=== PATIENT | female | born 2000 | race Caucasian/White ===

== ENCOUNTER 2021-01-05 18:56 | Emergency (ER) | payer OTHER, SELFPAY ==
--- NOTE | ~2021-01-05 | XR_ITS ---
EXAMINATION: XR CHEST CLINICAL INFORMATION: question of infiltrate, recent pneumonia with cough COMPARISON: Prior frontal view of chest performed today 7:36 PM TECHNIQUE: Lateral view of chest only. FINDINGS: On the frontal view of the chest performed earlier today a subtle opacity was noted at the left lung base. No airspace disease is seen in this lateral view. No pleural effusion. XR/XR chest 1V IMPRESSION: No airspace disease in this lateral projection.
--- NOTE | ~2021-01-05 | XR_ITS ---
EXAMINATION: PORTABLE CHEST 1 VIEW CLINICAL INFORMATION: COUGH . COMPARISON: No recent pertinent prior studies are available for comparison. TECHNIQUE: Portable frontal view of the chest was obtained. FINDINGS: The lungs are well expanded. Subtle focal opacity overlying the left base more likely due to overlying superimposed structures no other definitive infiltrate, effusion, edema, or pneumothorax. Cardiac and mediastinal silhouettes are within normal limits for technique. No acute bony abnormality seen. XR/XR chest 1V IMPRESSION: Subtle opacity overlying the left base more likely due to overlying structures. Early infiltrate would be considered less likely. Correlation with a PA and lateral view of the chest at slightly different obliquities may be helpful for evaluating further if needed.
[2021-01-05 20:41] LABS: COVID-19 Test Negative (Negative); IDNOW Serial# 55D5AD1C
[2021-01-05 21:05] VITALS: BP 128/80; PULSE 91; RESP 16; TEMP 36.8; O2SAT 98; BMI 39.0
--- NOTE | 2021-01-05 21:48 | ED.GENADULT ---
HPI - General Adult General Chief complaint: General Medical Stated complaint: pneumonia Time Seen by Provider: 01/05/21 21:48 Source: patient Mode of arrival: ambulatory Limitations: no limitations History of Present Illness HPI narrative: 2 weeks of low chest pain vs abdominal pain. patient had an xray at [place] and was told that she had possible pneumonia and she took a zpack which she finished a week ago. Patient currently at [facility]. Pain Consistency: intermittent Exacerbating factors: movement Associated symptoms: shortness of breath Related Data Allergies Allergy/AdvReac Type Severity Reaction Status Date / Time cephalexin [From Keflex] AdvReac Mild fever Verified 01/05/21 21:51 Review of Systems Constitutional: Constitutional: Reports no additional constitutional complaints Eyes: Eyes: Reports no additional eye complaints ENT: Denies dizziness Cardiovascular: Cardiovascular: Reports no additional cardiovascular complaints Respiratory: Respiratory: Reports as per HPI Gastrointestinal: Gastrointestinal: Reports no additional gastrointestinal complaints Genitourinary: Genitourinary: Reports no additional female genitourinary complaints Musculoskeletal: Musculoskeletal: Reports no additional musculoskeletal complaints Integumentary/Breasts: Skin/Breast: Denies rash Neurologic: Reports system reviewed and no additional complaints, except as documented, Denies dizziness and Denies Sensory deficit (Neuro) Psychiatric: Psychiatric: Denies anxiety [facility] Social History Social History Advance Directives: No Patient : No Physical Exam Vital Signs: Vital Signs: Last Vital Signs Temp 98.2 F 01/05/21 21:05 Pulse 91 01/05/21 21:05 Resp 16 01/05/21 21:05 BP 128/80 01/05/21 21:05 Pulse Ox 98 01/05/21 21:05 Body Mass Index 39.0 Const: General: healthy appearing Nutritional Appearance: obese Orientation/consciousness: oriented to person and patient oriented x3 Limitations: no limitations HENMT: Head: Yes normal to inspection Ears: external ears normal General nose exam: Normal external nose present Mouth: Normal oral and palatal mucosa present and oropharynx normal Throat: Yes posterior oropharynx normal Eyes: General: appearance normal, both eyes and all related structures Neck: Other: supple Neck: Yes normal visual inspection Chest: Chest palpation & inspection: normal inspection of the chest Resp: Auscultation: clear to auscultation bilaterally Cardio: Jugular venous distension: no JVD Rate: regular rate Rhythm: regular rhythm Heart sounds: S1 normal heart sound present and S2 normal heart sound present GI: Inspection: Yes normal to inspection Palpation (GI): Soft to palpation, nontender and No hepatosplenomegaly present Auscultation: normal bowel sounds : General: Yes no CVA tenderness Back/Spine/Pelvis: Back: no CVA tenderness Skin: General skin exam: no rashes or lesions noted Neuro: General: oriented to person and patient oriented x3 Cranial nerves: Yes CN's II-XII intact bilaterally Motor exam (neuro): 5/5 motor strength present throughout Sensory Exam: No Sensory deficit (Neuro) Extrem: General: Yes normal to inspection Psych: Appearance: grossly normal Course Reevaluation(s) Reevaluation #1: no evidence of pneumonia on cxr. Patient with lower rib tenderness most likely from coughing although she does not have any cough here. Will dc home on tylenol and motrin for pain Time: 22:22 Medical Decision Making Lab Data Labs: Lab Results 01/05/21 Range/Units 20:18 COVID-19 (CADE) Negative (Negative) COVID-19 Clin Com See Note Imaging Data Chest x-ray: Radiologist's impression: no infiltrate Discharge Plan Discharge Clinical Impression: Costochondritis Patient Disposition: Home, Self-Care Instructions: Costochondritis (ED), Thoracic Pain (ED) Additional Instructions: tylenol alternating with motrin for pain Referrals: Physician,Unknown [Primary Care Provider] - 1 week
== END 2021-01-05 22:36 | disposition home or self-care (01) ==
PROVIDERS: Emergency Provider Emergency Medicine
DX: M94.0 Chondrocostal junction syndrome [Tietze] (principal); Z20.822 Contact with and (suspected) exposure to COVID-19
CPT/HCPCS: 36415; 71045; 87635; 99283